=== PATIENT | male | born 1980 | race African-American/Black ===

== ENCOUNTER 2024-12-19 21:24 | Inpatient (IN) | payer MEDICAID ==
[~2024-12-19] VITALS: Ht 170.2 cm; Wt 90.7 kg
[2024-12-19 21:32] VITALS: O2SAT 99
[2024-12-19] MEDS: SODIUM CHLORIDE 0.9% (SEPSIS BOLUS) IV ONE (22:05)
[2024-12-19] MEDS: AZITHROMYCIN 500MG/250ML 250 ML IV ONE (22:50)
[2024-12-19 23:03] LABS: BASOPHILS % 0.4 % (0.0-2.0); EOSINOPHILS % 0.7 % (0.0-5.0); HEMATOCRIT. 34.4 % (42.0-52.0); HEMOGLOBIN. 11.0 g/dL (14.0-18.0); LYMPHOCYTES % 28.9 % (20.0-50.0); MEAN PLATELET VOLUME 8.2 fl (7.4-10.4); MONOCYTES % 8.4 % (2.0-8.0); NEUTROPHILS % 61.6 % (40.0-76.0); PLATELET 95 x1000/uL (130-400); RED BLOOD CELL COUNT 3.19 mill/uL (4.7-6.1); RED CELL DISTRIBUTION WIDTH 18.0 % (11.6-14.6)
[2024-12-19 23:13] LABS: CREATININE 0.7 mg/dL (0.6-1.3); ETHANOL BLOOD < 10 mg/dL (<10); UREA NITROGEN BLOOD 7 mg/dL (9-23)
[2024-12-19 23:14] LABS: ASPARTATE AMINOTRANSFERASE 49 IU/L (<34)
[2024-12-19 23:15] LABS: BILIRUBIN DIRECT 0.4 mg/dL (<=3.0); BILIRUBIN TOTAL 0.9 mg/dL (0.1-1.0); PROTEIN TOTAL 6.7 g/dL (6.0-8.3)
[2024-12-19 23:16] LABS: *AMPHETAMINES SCREEN URINE NEGATIVE (NEGATIVE); *BARBITURATES SCREEN URINE NEGATIVE (NEGATIVE); *BENZODIAZEPINES SCREEN URINE NEGATIVE (NEGATIVE); *COCAINE SCREEN URINE NEGATIVE (NEGATIVE)
[2024-12-19 23:17] LABS: CANNABINOID URINE SCREEN NEGATIVE (NEGATIVE); ECSTASY MDMA SCREEN URINE NEGATIVE (NEGATIVE); METHADONE URINE SCREEN NEGATIVE (NEGATIVE); OPIATES URINE SCREEN NEGATIVE (NEGATIVE); PHENCYCLIDINE URINE SCREEN NEGATIVE (NEGATIVE)
[2024-12-19] MEDS: CEFTRIAXONE 1GM/50ML 50 ML IV ONE (23:45)
[2024-12-20] MEDS: MAGNESIUM 1 G PREMIX 100 ML IV NR (00:57)
[2024-12-20] MEDS: KCL 20MEQ/100ML PREMIX 100 ML IV NR (00:58)
[2024-12-20] MEDS: POTASSIUM CHLORIDE 20MEQ/PACKET PO NR (00:58)
[2024-12-20 12:00] VITALS: BP 150/90; PULSE 65; RESP 18; TEMP 36.6; O2SAT 98
[2024-12-20] MEDS ORDERED: BUPR1FIL19 (12:34)
[2024-12-20] MEDS ORDERED: LOSA-412 MT (12:34)
[2024-12-20 13:00] VITALS: BP 150/90; PULSE 65; RESP 18; TEMP 36.5848
[2024-12-20] MEDS ORDERED: ACETAMINOPHEN 325MG TABLET PO PRN (13:30)
[2024-12-20] MEDS ORDERED: IPRATROPIUM/ALBUTEROL 0.5-3(2.5)MG/3ML NEB HHN PRN (13:30)
[2024-12-20] MEDS ORDERED: ONDANSETRON HCL 4MG/2ML INJ IV PRN (13:30)
[2024-12-20 16:00] VITALS: BP 148/86; PULSE 91; RESP 20; TEMP 37.2; O2SAT 100
[2024-12-20] MEDS ORDERED: BUPR8TAB3 SL (16:45)
[2024-12-20] MEDS ORDERED: LOSA50TA41 MT (16:50)
[2024-12-20] MEDS: LOSARTAN 50 MG TABLET PO SCH (18:45)
[2024-12-20] MEDS: BUPRENORPHINE 8MG SL TABLET SL PRN (18:45)
[2024-12-20 20:00] VITALS: BP 147/86; PULSE 67; RESP 18; TEMP 36.2; O2SAT 100
[2024-12-20] MEDS: MELATONIN 3MG TABLET PO PRN (22:06)
[2024-12-21] VITALS: BP 136/76; PULSE 67; RESP 18; TEMP 36.9; O2SAT 97
[2024-12-21 04:00] VITALS: BP 132/81; PULSE 76; RESP 18; TEMP 36.8; O2SAT 94
[2024-12-21 07:57] VITALS: BP 143/75; PULSE 68; RESP 16; TEMP 36.7; O2SAT 96
[2024-12-21 12:00] VITALS: BP 158/80; PULSE 65; RESP 14; TEMP 37; O2SAT 97
[2024-12-21 16:00] VITALS: BP 145/88; PULSE 79; RESP 16; TEMP 36.8; O2SAT 97
[2024-12-21 20:00] VITALS: BP 154/87; PULSE 67; RESP 20; TEMP 36.1; O2SAT 98
[2024-12-21] MEDS: ZOLPIDEM TARTRATE 5MG TABLET PO PRN (21:05)
[2024-12-21 23:09] LABS: CREATININE 0.9 mg/dL (0.6-1.3)
[2024-12-21 23:10] LABS: UREA NITROGEN BLOOD 9 mg/dL (9-23)
[2024-12-22] VITALS: BP 135/82; PULSE 92; RESP 18; TEMP 36.6; O2SAT 97
[2024-12-22 04:00] VITALS: BP 128/75; PULSE 64; RESP 20; TEMP 36.1; O2SAT 98
[2024-12-22 08:00] VITALS: BP 143/75; PULSE 70; RESP 16; TEMP 36.9; O2SAT 99
== END 2024-12-22 11:00 | disposition left against medical advice (07) | DRG 425 ==
LOC: ER 21:24 → 7WST 12-20 00:29 → EDBEDREQ 12-20 00:45 → EDBEDREQDT 12-20 00:45 → EDBEDREQTM 12-20 00:45 → ENRESERV 12-20 11:48
PROVIDERS: ADMIT Internal Medicine; ATTEND Internal Medicine
DX: E87.6 Hypokalemia (principal); D61.818 Other pancytopenia; I10 Essential (primary) hypertension; K76.9 Liver disease, unspecified; F11.20 Opioid dependence, uncomplicated; Z20.822 Contact with and (suspected) exposure to COVID-19; R07.89 Other chest pain; Z53.29 Procedure and treatment not carried out because of patient's decision for other reasons; Z87.01 Personal history of pneumonia (recurrent); Z55.6 Problems related to health literacy
CPT/HCPCS: 36415; 71045; 80048; 80076; 80305; 80320; 83605; 83735; 83880; 85025; 87426; 93005; 96361; 96365; 96367; 99291; J0456; J0696; J3475; J3480; J7030; G0480